=== PATIENT | male | born 1945 | race Caucasian/White ===

== ENCOUNTER → 2016-12-06 | Outpatient (CLI) | payer MEDICARE ==
--- NOTE | 2016-12-06 17:23 | DI ---
Indication: ITS.REASON: R06.02 SHORTNESS OF BREATH; Z87.891; R04.2 HYMOPTYSIS CHEST, PA LATERAL: Comparison: None Technique: PA and lateral view Findings: Patient showed heart size the upper range of normal with no central vascular congestion or mediastinal widening. Lungs are clear. Mild degenerative changes in the lower lumbar spine without acute fractures. Impression: No acute cardiopulmonary findings. .
== END ==
LOC: IMA 12-03 12:15
PROVIDERS: ATTEND Registered Nurse
DX: R06.02 Shortness of breath (principal); R04.2 Hemoptysis; Z87.891 Personal history of nicotine dependence; M47.896 Other spondylosis, lumbar region

== ENCOUNTER 2017-02-05 08:29 | Inpatient (IN) ==
[2017-02-05] MEDS ORDERED: CEFTRIAXONE 1 G in NS 100 ML IV ONE (08:42)
--- NOTE | 2017-02-05 09:01 | Emergency Department Report ---
SOB HPI - General Chief Complaint: Shortness of Breath/Dyspnea Stated Complaint: soa,coughing up blood Time Seen by Provider: 02/05/17 08:33 Source: patient Mode of arrival: ambulatory Limitations: no limitations - History of Present Illness 71yo man presented to the ER with 1mo of dyspnea. Pt has felt weak, dyspneic at rest, and unsteady on his feet. Has also been coughing small amounts of blood. Has called EMS to his house 3x previously for help after a fall. Has not seen his doctor for these sx. Has not taken anything for his sx. No sick contacts. MD Complaint: shortness of breath Onset (ago): week(s) Severity: severe Consistency/Duration: constant Relieving factors: nothing Exacerbating factors: exertion, movement, coughing Known history of: diabetes Associated symptoms: cough, sputum production, hemoptysis Treatment prior to arrival: none - Related Data Home Medications Medication Instructions Recorded Confirmed GlyBURIDE [Micronase] 5 mg PO DAILY 02/05/17 02/05/17 Metformin [Glucophage] 1,000 mg PO BIDWM 02/05/17 02/05/17 Tamsulosin [Flomax] 0.4 mg PO BID 02/05/17 02/05/17 Allergies Allergy/AdvReac Type Severity Reaction Status Date / Time No Known Allergies Allergy Verified 02/05/17 08:32 Review of Systems All systems: reviewed and negative except as stated Respiratory: Reports: cough, dyspnea, hemoptysis [facility] Patient Stated Medical History Hypertension Yes Diabetes Mellitus Type 2 Yes Shingles Yes Physical Exam - Limitations Limitations: no limitations - General General appearance: alert, in no apparent distress, cachectic - Normal Exams: Head:: Normocephalic without trauma Eyes:: Pupils are PERRLA w/ EOMI, No scleral icterus, irritation, or foreign bodies noted ENMT:: No facial trauma, nasal exudates, pharyngeal erythema, or exudates are noted Neck:: Full range of motion, without adenopathy, JVD, bruits or thyromegaly Lymphatic:: No lymphadenopathy, or lymphedema noted Musculoskeletal:: No tenderness, or deformity noted, good range of motion, all extremities Neurological:: Patient is alert, and oriented, cranial nerves, motor/sensory/ cerebellar, exams w/o gross deficits, to observation Psychiatric:: Patient exhibits, appropriate attention, emotion and affect - ENT ENT exam: Present: other (edentulous) - Chest Chest inspection: Present: normal inspection, symmetric chest wall rise. Absent : tenderness, rash - Respiratory Respiratory exam: Present: crackles (In lower lobes). Absent: normal lung sounds bilaterally, respiratory distress, wheezes, stridor, accessory muscle use - Cardiovascular Cardiovascular exam: Present: normal rhythm, tachycardia, +S1, +S2. Absent: systolic murmur, diastolic murmur, rubs, gallop, clicks, +S3, +S4 - Abdominal Exam Abdominal exam: Present: soft, normal bowel sounds. Absent: distention, tenderness, guarding, rebound, rigidity, psoas sign, obturator sign, heel tap sign, Cohen's sign, Rovsing's sign, hernia - Skin Skin exam: Present: warm, dry, intact, other (AKs and bruising) Course - Consultations Consultation #1: Dr. Ramsey: Will admit for further eval and treatment. Time: 11:11 Vital Signs Temperature 98.4 F 02/05/17 08:30 Pulse Rate 121 H 02/05/17 08:30 Respiratory Rate 32 H 02/05/17 08:30 Blood Pressure 131/80 02/05/17 08:30 Pulse Oximetry 96 02/05/17 08:30 Temperature 99.3 F 02/08/17 00:00 Pulse Rate 121 H 02/08/17 00:01 Respiratory Rate 42 H 02/08/17 03:25 Blood Pressure 86/44 02/08/17 00:00 Pulse Oximetry 94 02/08/17 03:25 Shortness of Breath/Dyspnea - Differential Diagnosis Likely: acute exacerbation of chronic obstructive airways disease, congestive heart failure, community acquired pneumonia, pulmonary embolism - Medical Records Attestation: I reviewed the patient's medical records. - Lab Data Result diagrams: 02/08/17 01:08 02/08/17 01:08 Lab Results 02/05/17 02/05/17 02/05/17 Range/Units 08:55 09:10 09:13 WBC (4.5-11.0) T/MM3 RBC (4.50-5.90) M/MM3 Hgb (13.5-17.5) GM/DL Hct (41-53) % MCV (80-100) UM3 MCH (26-34) UUG MCHC (31-37) GM/DL RDW Std Deviation (36.9-50.2) FL Plt Count (130-400) T/MM3 MPV (9.4-12.4) UM3 Immature Gran % (Auto) Neut % (Auto) Lymph % (Auto) Faulk % (Auto) Eos % (Auto) Baso % (Auto) Neut # Lymph # Faulk # Eos # Baso # Abs Immat Gran (auto) Neutrophils % (Manual) (33-66) % Band Neutrophils % (0-6) % Lymphocytes % (Manual) (23-45) % Monocytes % (Manual) (0-9.0) % Basophils % (Manual) (0-2) % Metamyelocytes % (0-0) % Neutrophils # (Manual) (1.8-7.7) T/MM3 Band Neutrophils # T/MM3 Lymphocytes # (Manual) (1-4.8) T/MM3 Monocytes # (Manual) (0-0.8) T/MM3 Basophils # (Manual) (0-0.2) T/MM3 Metamyelocytes # T/MM3 Polychromasia Anisocytosis RBC Morph Comment INR (0.99-1.21) D-Dimer (0-230) NG/ML ABG pH 7.490 H (7.350-7.450) ABG pCO2 32 L (34-45) MMHG ABG pO2 74 L (80-100) MMHG ABG HCO3 24 (22-26) MEQ/L ABG Total CO2 25.4 (23-27) MEQ/L ABG O2 Saturation 96.0 (95.0-98.0) % ABG Base Excess 1.6 (-2.0-2.0) MMOL/L O2 Delivery Method Room air Turbidity < 20 (0-20) Sodium 135 (134-144) MEQ/L Potassium 4.3 (3.6-5) MEQ/L Chloride 96 L (98-107) MEQ/L Carbon Dioxide 23 (22-30) MEQ/L Anion Gap 16 H (5-15) MEQ/L BUN 29.0 H (9-20) MG/DL Creatinine 0.9 (0.8-1.5) MG/DL GFR Calculation 83 BUN/Creatinine Ratio 32 H (6-26) RATIO Glucose 202 H (75-110) MG/DL Calculated Osmolality 272 (261-280) MOSM/KG Calcium 11.2 H (8.4-10.2) MG/DL Total Bilirubin 1.80 H (0.20-1.30) MG/DL Icterus Index < 2 (0-7) AST 33 (17-59) U/L ALT 52 (21-72) U/L Alkaline Phosphatase 107 (38-126) U/L Troponin I < 0.012 (0-0.12) ng/ml B-Natriuretic Peptide 1260 H (0-175) pg/mL Total Protein 6.7 (6.3-8.2) G/DL Albumin 3.9 (3.5-5.0) G/DL Globulin 2.8 (2.4-3.6) G/DL Albumin/Globulin Ratio 1.4 (1.1-2.2) RATIO Plasma Lactate 2.3 H (0.6-2.2) MMOL/L Procalcitonin NG/ML Specimen Hemolysis < 15 (0-25) Ur Collection Type Urine, clean catch Urine Color Mine (YELLOW) Urine Clarity Sl cloudy Urine pH 5.0 (5.0-8.0) Ur Specific [place] >=1.030 H (1.015-1.025) Urine Protein 1+ A (NEGATIVE) Urine Glucose (UA) Negative (NEGATIVE) Urine Ketones 1+ A (NEGATIVE) Urine Occult Blood Negative (NEGATIVE) Urine Nitrate Negative (NEGATIVE) Urine Bilirubin 2+ A (NEGATIVE) Urine Urobilinogen 2.0 (NORMAL) EU/DL Ur Leukocyte Esterase Negative (NEGATIVE) Urine RBC 0-1 (0-3) /HPF Urine WBC 3-5 (0-5) /HPF Ur Squamous Epith Cells 0-5 Urine Bacteria 3+ H (NEGATIVE) Granular Casts 3-5 Ur Culture Indicated? Cult not indicated 02/05/17 02/05/17 02/05/17 Range/Units 09:13 09:19 09:20 WBC 15.1 H (4.5-11.0) T/MM3 RBC 3.95 L (4.50-5.90) M/MM3 Hgb 11.2 L (13.5-17.5) GM/DL Hct 35.5 L (41-53) % MCV 89.9 (80-100) UM3 MCH 28.4 (26-34) UUG MCHC 31.5 (31-37) GM/DL RDW Std Deviation 42.5 (36.9-50.2) FL Plt Count 287 (130-400) T/MM3 MPV 10.1 (9.4-12.4) UM3 Immature Gran % (Auto) Not performed Neut % (Auto) Not performed Lymph % (Auto) Not performed Faulk % (Auto) Not performed Eos % (Auto) Not performed Baso % (Auto) Not performed Neut # Not performed Lymph # Not performed Faulk # Not performed Eos # Not performed Baso # Not performed Abs Immat Gran (auto) Not performed Neutrophils % (Manual) 77.0 H (33-66) % Band Neutrophils % 1.0 (0-6) % Lymphocytes % (Manual) 14.0 L (23-45) % Monocytes % (Manual) 6.0 (0-9.0) % Basophils % (Manual) 1.0 (0-2) % Metamyelocytes % 1.0 H (0-0) % Neutrophils # (Manual) 11.6 H (1.8-7.7) T/MM3 Band Neutrophils # 0.2 T/MM3 Lymphocytes # (Manual) 2.1 (1-4.8) T/MM3 Monocytes # (Manual) 0.9 H (0-0.8) T/MM3 Basophils # (Manual) 0.2 (0-0.2) T/MM3 Metamyelocytes # 0.2 T/MM3 Polychromasia 1+ Anisocytosis 1+ RBC Morph Comment Abnormal INR 1.29 H (0.99-1.21) D-Dimer 3194 H (0-230) NG/ML ABG pH (7.350-7.450) ABG pCO2 (34-45) MMHG ABG pO2 (80-100) MMHG ABG HCO3 (22-26) MEQ/L ABG Total CO2 (23-27) MEQ/L ABG O2 Saturation (95.0-98.0) % ABG Base Excess (-2.0-2.0) MMOL/L O2 Delivery Method Turbidity (0-20) Sodium (134-144) MEQ/L Potassium (3.6-5) MEQ/L Chloride (98-107) MEQ/L Carbon Dioxide (22-30) MEQ/L Anion Gap (5-15) MEQ/L BUN (9-20) MG/DL Creatinine (0.8-1.5) MG/DL GFR Calculation BUN/Creatinine Ratio (6-26) RATIO Glucose (75-110) MG/DL Calculated Osmolality (261-280) MOSM/KG Calcium (8.4-10.2) MG/DL Total Bilirubin (0.20-1.30) MG/DL Icterus Index (0-7) AST (17-59) U/L ALT (21-72) U/L Alkaline Phosphatase (38-126) U/L Troponin I (0-0.12) ng/ml B-Natriuretic Peptide (0-175) pg/mL Total Protein (6.3-8.2) G/DL Albumin (3.5-5.0) G/DL Globulin (2.4-3.6) G/DL Albumin/Globulin Ratio (1.1-2.2) RATIO Plasma Lactate (0.6-2.2) MMOL/L Procalcitonin 0.24 NG/ML Specimen Hemolysis (0-25) Ur Collection Type Urine Color (YELLOW) Urine Clarity Urine pH (5.0-8.0) Ur Specific [place] (1.015-1.025) Urine Protein (NEGATIVE) Urine Glucose (UA) (NEGATIVE) Urine Ketones (NEGATIVE) Urine Occult Blood (NEGATIVE) Urine Nitrate (NEGATIVE) Urine Bilirubin (NEGATIVE) Urine Urobilinogen (NORMAL) EU/DL Ur Leukocyte Esterase (NEGATIVE) Urine RBC (0-3) /HPF Urine WBC (0-5) /HPF Ur Squamous Epith Cells Urine Bacteria (NEGATIVE) Granular Casts Ur Culture Indicated? - Radiology Data Attestation: I reviewed the patient's radiology results. CXR: New right lower lobe consolidation and small pleural effusion. Findings could represent pneumonia or aspiration. Contrast enhanced chest CT may be helpful given the reported hemoptysis. - EKG Data EKG #1 EKG attestation: Yes: I reviewed and interpreted this EKG. EKG shows normal: sinus rhythm Rate: tachycardia Irving/QRS: left axis deviation Disposition Clinical Impression: Congestive heart failure Disposition: To [facility] Condition: Time of Disposition: 13:00 - Seen By: physician
--- NOTE | 2017-02-05 09:54 | XRay Report ---
INDICATION: Dyspnea for one month, hemoptysis PROCEDURE: CHEST 2-VIEWS UPRIGHT (PA & LAT) Encounter: Initial COMPARISON: December 06, 2016 FINDINGS: New airspace consolidation in the right lower lobe. Small to moderate right effusion. Left lung is clear. No pneumothorax. Heart size and mediastinal contours are stable. Pulmonary vascularity is normal. No significant skeletal abnormality. Impression: New right lower lobe consolidation and small pleural effusion. Findings could represent pneumonia or aspiration. Contrast enhanced chest CT may be helpful given the reported hemoptysis. .
[2017-02-05] MEDS ORDERED: ENOXAPARIN 80 MG/0.8 ML INJECTION SQ ONE (10:04)
[2017-02-05] MEDS ORDERED: SALINE FLUSH 10ml SYRINGE ONE (10:22)
[2017-02-05] MEDS ORDERED: IOHEXOL 350mg/ml 75ml INJECTION ONE (10:22)
[2017-02-05] MEDS ORDERED: NS 100 ML ONE (10:22)
--- NOTE | 2017-02-05 11:18 | CT Scan Report ---
Indication: Abn CXR and elev d-Dimer PROCEDURE: CT angio pulm emboli: Encounter: Initial Comparison: Chest x-ray from today Technique: Axial CT pulmonary angiographic phase images were performed through the chest after the administration of intravenous contrast. Coronal and Sagittal MIP reconstructed images were created and reviewed. Automated Exposure Control and Iterative Reconstruction dose reducing techniques were utilized. Contrast: Omnipaque 350 62 mL Findings: Pulmonary arteries: Exam is diagnostic to the subsegmental pulmonary arterial level. There is embolus seen within the bifurcation of the left main pulmonary artery extending into the proximal left lower lobe segmental branch. No other areas of emboli identified Other findings: There is a large mass in the right lower lobe measuring 8.1 x 8.2 cm in diameter on axial image #30. This displaces the pulmonary vessels and bronchi. Moderate right pleural effusion present. Mild atelectasis in the left lung with some small subpleural nodules. The costophrenic angle measuring up to 1.2 cm in size. Compressive atelectasis in the right. The central airways are patent. Mildly prominent left axillary lymph nodes which are not pathologically enlarged by CT size criteria heart is mildly enlarged. Small pericardial effusion. Subcarinal adenopathy measuring up to 2.8 cm in short axis dimension. Nodule in the cardiophrenic angle on axial image #52 measuring 1.4 cm in short axis dimension. There are additional nodules in the cardiophrenic angles more inferiorly. The upper abdomen shows multiple omental nodules and peritoneal implants. These measure up to 1.5 cm in diameter. Bilateral adrenal masses most likely representing metastases. This measures up to 5.2 cm on the left and 4.7 cm on the right. Prominent mesenteric mass just below the greater curvature of the stomach on axial image #87 measuring 2.7 cm in diameter. Bone windows show degenerative changes in the spine without obvious lytic or blastic lesions. Prominent mass along the left paraspinal region on axial image 115 measuring 4 cm in diameter. Impression: 1. Left lung pulmonary emboli. 2. Large right lower lobe mass suspicious for a primary lung malignancy with probable malignant pleural effusion. 3. Mediastinal adenopathy along with multiple omental and mesenteric nodules and bilateral adrenal masses consistent with widespread metastatic disease. Contrast enhanced CT of the abdomen and pelvis may be helpful for further evaluation. Case was discussed with Dr. Ashton in the emergency department at [facility] on February 05, 2017. .
--- NOTE | 2017-02-05 14:01 | History & Physical Report ---
<Kary Garcia V - Last Filed: 02/05/17 13:54> History of Present Illness Date: 02/05/17 Chief complaint: hemoptysis, weakness, dizziness HPI: Patient is a 71-year-old male who presents to the emergency room today for evaluation of ongoing weakness, dyspnea with hemoptysis. Patient reports that he has been weak for approximately 1 month. He has fallen at least 3 times in that timeframe and has laid on the floor overnight. He has noticed for the last 3-4 days. His weakness has worsened and he has had an increased shortness of breath. He presented to the ER today for acute evaluation. White count was found to be elevated at 15.1, hemoglobin 11.2, hematocrit 35.5, platelet count 287. Sodium is 135, potassium 4.3, BUN 29, creatinine 0.9, glucose 202. Troponin was undetectable. Pro BNP 1260. Venous lactate 2.3. Pro-calcitonin 0.24. ABG indicated a pH of 7.490, pCO2 32, pO2 74, bicarbonate 24. INR 1.29. D- dimer was found to be elevated at 3194. Given this elevation. A CT scan of the chest was performed that did reveal a left pulmonary emboli, accompanied with a large right lower lobe mass suspicious for lung malignancy. A urinalysis did reveal 1+ protein, 1+ ketones, 2+ bilirubin with 3+ bacteria. Patient's saturations have maintained adequate on room air. He has been tachycardic since admit into the emergency room. In the 120s. Blood pressure stable. Given these acute findings. Hospitalist services were contacted and accepted patient for further evaluation and treatment. Review of Systems All systems: reviewed and no additional remarkable complaints except as stated - Constitutional Constitutional: Present: fatigue, malaise, weakness - Cardiovascular Cardiovascular: Present: dyspnea on exertion - Respiratory Respiratory: Present: cough, dyspnea, hemoptysis, dyspnea on exertion - Integumentary/Breasts Integumentary Comments: "Sore on bottom." [facility] Patient Stated Medical History Hypertension Diabetes Mellitus Type 2 Clotting Problems hx of Shingles Depression Surgical History: Tonsillectomy. vastectomy. Vasectomy reversal Family History: Father-lung cancer Mother of old age - Social History Smoking status: Former smoker (quit 1 year ago) Substance use type: does not use Alcohol intake frequency: does not drink Current residence: Apartment/Private Home Social history: Primary care provider, Ladonna Claros APRN at [facility] Medications Home Medications Medication Instructions Recorded Confirmed Type GlyBURIDE [Micronase] 5 mg PO DAILY 02/05/17 02/05/17 History Metformin [Glucophage] 1,000 mg PO BIDWM 02/05/17 02/05/17 History Tamsulosin [Flomax] 0.4 mg PO BID 02/05/17 02/05/17 History Allergies Allergy/AdvReac Type Severity Reaction Status Date / Time No Known Allergies Allergy Verified 02/05/17 08:32 Exam Vital Signs: Temperature 98.1 F 02/05/17 12:48 Pulse Rate 119 H 02/05/17 12:48 Respiratory Rate 16 02/05/17 12:48 Blood Pressure 126/65 02/05/17 12:48 Pulse Oximetry 95 02/05/17 12:48 Oxygen Delivery Method Room Air Height: 1.7 m Weight: 81.3 kg - Constitutional Present: no acute distress - Routine HEENT Exam Head: Present: normocephalic, atraumatic Eye: Present: EOMI, PERRL ENT: Present: mucous membranes moist - Routine Respiratory Exam Present: CTA bilaterally (anteriorly with diminished bases) - Routine Cardiovascular Exam Present: RRR, S1, S2, tachycardia (rate 120) - Routine Abdominal Exam Present: soft, normoactive bowel sounds - Routine Rectal Exam Comments: On exam he does have an open wound to the coccyx with open skin - Routine Extremities Exam Present: full ROM Comments: Bilateral knees indicate abrasions of various. Large abrasion on left elbow - Routine Back/Spine/Pelvis Exam Back/Spine: Present: full ROM - Routine Skin Exam Present: intact, dry, warm - Routine Neurological Exam Present: alert, oriented X3, CN II-XII intact - Routine Psychiatric Exam Present: normal affect, normal thought process Results - Labs CBC & Chem 7: 02/05/17 09:19 02/05/17 09:13 Assessment and Plan (1) Pulmonary emboli Current visit: Yes Status: Acute (2) Pulmonary mass Current visit: Yes Status: Acute (3) Tachycardia Current visit: Yes Status: Acute (4) Multiple falls Current visit: Yes Status: Chronic (5) Hypertension Current visit: Yes Status: Chronic (6) Diabetes Current visit: Yes Status: Chronic (7) Generalized weakness Current visit: Yes Status: Chronic Assessment and Plan: Admit patient to inpatient status under the care of Dr. Ramsey for pulmonary emboli with newfound pulmonary mass In-depth discussion regarding test findings with patient At the bedside regarding acute findings. He does indicate his desire to be a do not resuscitate, however, would like to speak with oncology regarding pathology of his pulmonary mass, possible treatment options and ongoing recommendations. Will place consult with Dr. Haney and Raquel Howard APRN Our patient Cardiac telemetry given his tachycardia. Will monitor Accu-Cheks carefully and patient may have 1800 calorie carb consistent diet. Wound consult placed to wound care for evaluation of coccyx wound Patient was given Lovenox 80 milligrams subcutaneous 1 in the emergency room. We'll continue this twice a day. Will discuss further outpatient anticoagulation options. He was empirically covered with Rocephin 1 gram IV. He does meet sepsis criteria with leukocytosis and elevated venous lactate, however, this also may be secondary to acute findings of pulmonary mass as not acute evidence of infection has been found at this time. Will discuss further with attending Dr Ramsey. Hospital Course Summary Disclaimer: The visit summary below is not to be considered part of the above Progress Note. Hospital Course: 02/05/17- admission Admit patient to inpatient status under the care of Dr. Ramsey for pulmonary emboli with newfound pulmonary mass In-depth discussion regarding test findings with patient At the bedside regarding acute findings. He does indicate his desire to be a do not resuscitate, however, would like to speak with oncology regarding pathology of his pulmonary mass, possible treatment options and ongoing recommendations. Will place consult with Dr. Haney and Raquel Howard APRN Our patient Cardiac telemetry given his tachycardia. Will monitor Accu-Cheks carefully and patient may have 1800 calorie carb consistent diet. Wound consult placed to wound care for evaluation of coccyx wound Patient was given Lovenox 80 milligrams subcutaneous 1 in the emergency room. We'll continue this twice a day. Will discuss further outpatient anticoagulation options. He was empirically covered with Rocephin 1 gram IV. He does meet sepsis criteria with leukocytosis and elevated venous lactate, however, this also may be secondary to acute findings of pulmonary mass as not acute evidence of infection has been found at this time. Will discuss further with attending Dr Ramsey. <Bhavik Ramsey - Last Filed: 02/05/17 18:36> History of Present Illness Date: 02/05/17 [facility] Patient Stated Medical History Hypertension Yes Diabetes Mellitus Type 2 Yes Clotting Problems Yes: PE Shingles Yes Depression Yes: "LAST COUPLE OF MONTHS" Exam Vital Signs: Temperature 96.3 F L 02/05/17 16:56 Pulse Rate 125 H 02/05/17 18:11 Respiratory Rate 16 02/05/17 16:56 Blood Pressure 137/75 02/05/17 18:11 Pulse Oximetry 96 02/05/17 16:56 Oxygen Delivery Method Room Air Height: 1.7 m Weight: 81.3 kg Results - Labs CBC & Chem 7: 02/05/17 09:19 02/05/17 09:13 Assessment and Plan (1) Pulmonary emboli Current visit: Yes Status: Acute (2) Pulmonary mass Current visit: Yes Status: Acute (3) Tachycardia Current visit: Yes Status: Acute (4) Diabetes Current visit: Yes Status: Chronic (5) Hypertension Current visit: Yes Status: Chronic (6) Multiple falls Current visit: Yes Status: Chronic (7) Generalized weakness Current visit: Yes Status: Chronic DVT Prophylaxis: Lovenox Resuscitation Status: Do Not Resuscitate Assessment and Plan: Have independently interviewed and examined pt. Chart reviewed. Case discussed with ED physician and my Q[employer] T[employer]ER. Care plan developed with my supervision; agree with above. First noticed coughing up blood about 1 month ago. Progressively become more winded-very SOA with any activities. No pain with breathing, but breaths very shallow. No congestion to chest. No having chest pressure, but more full to chest. No increased LE edema. Not eating well past several day because progressively more weak, unsteady, and has had may falls. No f/c. No nausea, ab pain, or diarrhea. Lungs: decreased, shallow and labored breathing. CV: tachy, regular AB: soft nt/nd +BS EXT: no edema Plan: Inpatient admission. With pt PE and tachycardia and lung mass, couple with his extreme exertional dyspnea due feel more than 2 midnights of hospitalization care needed. Will need Onc evaluation-pt open to Bx. Lovenox/ Coumadin for DVT-would need to change to IV Heparin once we can determine when Bx to be done. IVF of NS at 75cc/hr for renal protection due to contrast - hold metformin. ECHO due to dyspnea. Low dose Toprol XL to help tachycardia. Monitor lab and sugars. Rocephin for pulmonary coverage - likely SIRS marker due to PE/ Pulm mass. Hospital Course Summary Disclaimer: The visit summary below is not to be considered part of the above Progress Note.
[2017-02-05] MEDS ORDERED: WARFARIN 5 MG TABLET PO ONE (16:10)
--- NOTE | 2017-02-05 16:26 | Pharmacy Consult ---
Pharmacy Consult-Warfarin - Consult Information COUMADIN CONSULT (Initial): Dx: Pulmonary Embolism Baseline INR = 1.29. Christian is a 71 yo male that came to the Hospital with chief complaints of hemoptysis, weakness and dizziness. Among other things, he was found to have a lung mass and Pulmonary embolism. The patient was started on Enoxaparin 80 mg sq twice a day (1 mg/kg q12h) and a Warfarin Protocol was started by Dr. Monica Ramsey. I ordered a dose of Warfarin 5 mg today. The Pharmacy will continue to monitor and make adjustments accordingly. Thank you for the Warfarin Protocol, Ben Chang, Pharmacist.
[2017-02-05] MEDS: NS 1,000 ML IV SCH (16:47)
--- NOTE | 2017-02-05 17:19 | Wound Care Progress Note ---
Wound Center Progress Note: Pt has moisture associated skin injury, pt is noted to be incontinent. Generalized redness at this time advanced skin protectant applied and pt encouraged to use urinal and to for assitance if wet. Instructed staff to reapply skin protectant on Friday, and to reposition frequently.
[2017-02-05] MEDS ORDERED: METFORMIN 1,000 MG TABLET PO SCH (17:30)
[2017-02-05] MEDS ORDERED: METOPROLOL 5mg/5ml INJECTION IVP PRN (17:50)
[2017-02-05] MEDS: TAMSULOSIN 0.4 MG CAPSULE PO SCH (22:00)
[2017-02-05] MEDS: ENOXAPARIN 80 MG/0.8 ML INJECTION SQ SCH (22:00)
[2017-02-06] MEDS ORDERED: HYDROCODONE/APAP 5mg/325mg TABLET PO PRN (05:11)
[2017-02-06] MEDS ORDERED: ACETAMINOPHEN 325 MG TABLET PO PRN (05:11)
[2017-02-06] MEDS: NS 1,000 ML IV SCH (06:20)
--- NOTE | 2017-02-06 07:58 | Pharmacy Consult ---
Pharmacy Consult-Warfarin - Laboratory Information 02/06/17 04:22 INR 1.35 H - Consult Information Will give warfarin 5mg po today. Thank you.
[2017-02-06] MEDS: ENOXAPARIN 80 MG/0.8 ML INJECTION SQ SCH ×2 (10:01→21:11)
[2017-02-06] MEDS: CEFTRIAXONE 1 G in NS 100 ML IV SCH (10:02)
[2017-02-06] MEDS: GLYBURIDE 5 MG TABLET PO SCH (10:04)
[2017-02-06] MEDS: TAMSULOSIN 0.4 MG CAPSULE PO SCH ×2 (10:04→21:11)
[2017-02-06] MEDS ORDERED: WARFARIN 5 MG TABLET PO SCH (12:00)
--- NOTE | 2017-02-06 14:06 | Consult Note ---
Oncology HPI - Data of Consult Patient: new to practice <Kayli Lazcano - 02/06/17 14:06> Consult date: 02/06/17 <Kayli Lazcano - 02/06/17 14:06> Requesting Physician: Bhavik Ramsey MD <Donny Haney - 02/06/17 17:27> Bhavik Ramsey MD <Kayli Lazcano - 02/06/17 14:06> Primary Care Provider: RAI Peraza APRN <Donny Haney - 02/06/17 17:27> RAI Peraza APRN <Kayli Lazcano - 02/06/17 14:06> Family Provider: Gretchen Weber APRN <Donny Haney - 02/06/17 17:27> Gretchen Weber APRN <Kayli Lazcano - 02/06/17 14:06> - Consult Narrative Reason for consult: lung mass <Kayli Lazcano - 02/06/17 15:07> History of present illness: 71-year-old male, new patient to Dr. Haney admitted yesterday with acute finding of pulmonary embolus, tachycardia, and lung mass. Denies fever, chills, night sweats. Reports decreased appetite for several weeks. Does not think he's had significant weight loss. States has had frequent cough, intermittent episodes of hemoptysis for several weeks. His understanding was he was to have a "test above and below-a colonsocopy. But I couldn't get a hold of the business office." Had increased weakness, several falls at home in the past 3 weeks. Weakness and shortness of air increased and patient presented to [facility] emergency room yesterday. CT angiogram showed evidence of the pulmonary embolus, large right lower lobe mass , mediastinal adenopathy along with multiple omental and mesenteric nodules. Also noted bilateral adrenal masses. Findings consistent with widespread metastatic disease. <Kayli Lazcano - 02/06/17 15:07> Review of Systems - Constitutional Constitutional: Present: fatigue, malaise, weakness. Absent: fever(s), night sweats <Kayli Lazcano 02/06/17 15:07> - EENT Eyes: Absent: loss of vision <Kayli Lazcano 02/06/17 15:07> Mouth/Throat: Absent: sore throat, sores <Kayli Lazcano 02/06/17 15:07> - Cardiovascular Cardiovascular: Present: dyspnea on exertion. Absent: chest pain, edema < Kayli Lazcano 02/06/17 15:07> - Respiratory Respiratory: Present: cough, dyspnea, hemoptysis <Kayli Lazcano 02/06/17 15 :07> - Gastrointestinal Gastrointestinal: Present: early satiety. Absent: abdominal pain, change in bowel habits <Kayli Lazcano 02/06/17 15:07> - Genitourinary Genitourinary: Absent: difficulty urinating <Kayli Lazcano 02/06/17 15:07> - Musculoskeletal Musculoskeletal: Present: muscle weakness <Kayli Lazcano 02/06/17 15:07> - Integumentary/Breasts Integumentary: Present: other (alterable abrasions. Large ecchymotic area posterior right axilla) <Kayli Lazcano 02/06/17 15:07> - Neurological Neurological: Present: frequent falls, weakness <Kayli Lazcano 02/06/17 15: 07> [facility] Patient Stated Medical History Hypertension Yes Diabetes Mellitus Type 2 Yes Clotting Problems Yes: PE Shingles Yes Depression Yes: "LAST COUPLE OF MONTHS" <Donny Haney 02/06/17 17:27> Patient Stated Medical History Hypertension Yes Diabetes Mellitus Type 2 Yes Clotting Problems Yes: PE Shingles Yes Depression Yes: "LAST COUPLE OF MONTHS" <Kayli Lazcano 02/06/17 15:07> Surgical History: Tonsillectomy. vastectomy. Vasectomy reversal <Kayli Lazcano 02/06/17 14:06> Family History: Father of [place], lung cancer. Half sister with breast cancer, . 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) <Kayli Lazcano - 02/06/17 15:07> Does patient use chewing tobacco?: No <Kayli Lazcano - 02/06/17 15:07> Current residence: Apartment/Private Home <Kayli Lazcano - 02/06/17 14:06> Medications Home Medications Medication Instructions Recorded Confirmed Type GlyBURIDE [Micronase] 5 mg PO DAILY 02/05/17 02/05/17 History Metformin [Glucophage] 1,000 mg PO BIDWM 02/05/17 02/05/17 History Tamsulosin [Flomax] 0.4 mg PO BID 02/05/17 02/05/17 History <Donny Haney - 02/06/17 17:27> Allergies Allergy/AdvReac Type Severity Reaction Status Date / Time No Known Allergies Allergy Verified 02/05/17 08:32 <Donny Haney - 02/06/17 17:27> Exam Vital signs: Temperature 96.3 F L 02/06/17 15:47 Pulse Rate 119 H 02/06/17 15:47 Respiratory Rate 20 02/06/17 15:47 Blood Pressure 118/69 02/06/17 15:47 Pulse Oximetry 97 02/06/17 15:47 Oxygen Delivery Method Nasal Cannula Oxygen Flow Rate 3 <Donny Haney - 02/06/17 17:27> Temperature 96.6 F L 02/06/17 08:02 Pulse Rate 118 H 02/06/17 08:02 Respiratory Rate 20 02/06/17 08:02 Blood Pressure 107/64 02/06/17 08:02 Pulse Oximetry 91 02/06/17 08:02 Oxygen Delivery Method Room Air Oxygen Flow Rate 3 <Kayli Lazcano - 02/06/17 14:06> - Constitutional mild distress, well developed, cooperative <Kayli Lazcano 02/06/17 15:07> - Routine HEENT Exam Head: Present: normocephalic <Kayli Lazcano - 02/06/17 15:07> Eye: Present: EOMI, PERRL, normal accommodation, conjunctivae pink <Kayli Lazcano - 02/06/17 15:07> ENT: Present: mucous membranes moist <Kayli Lazcano - 02/06/17 15:07> - Routine Neck Exam Present: supple. Absent: lymphadenopathy, swelling <Kayli Lazcano - 15:07> - Routine Respiratory Exam Present: dyspnea, decreased breath sounds (right greater than left.). Absent: wheezes, crackles <Kayli Lazcano - 02/06/17 15:07> - Routine Cardiovascular Exam Present: RRR, tachycardia <Kayli Lazcano - 02/06/17 15:07> - Routine Abdominal Exam Present: soft. Absent: tenderness, non distended <Kayli Lazcano - 02/06/17 15:07> - Routine Extremities Exam Present: full ROM. Absent: no edema <Kayli Lazcano - 02/06/17 15:07> - Routine Skin Exam Present: wounds (multiple areas of abrasion left elbow, bilateral knees, large ecchymosis right axilla). Absent: petechiae, rash <Kayli Lazcano - 02/06/17 15:07> - Routine Neurological Exam Present: alert, normal speech (slow at times in responses.) <Kayli Lazcano - 02/06/17 15:07> - Routine Psychiatric Exam Present: normal affect. Absent: anxious <Kayli Lazcano - 02/06/17 15:07> Oncology Results - Labs CBC & Chem 7: 02/06/17 04:22 02/06/17 04:22 <Donny Haney D - 02/06/17 17:27> Labs: Short CBC 02/06/17 Range/Units 04:22 WBC 13.8 H (4.5-11.0) T/MM3 Hgb 9.4 L D (13.5-17.5) GM/DL Hct 30.3 L D (41-53) % Plt Count 286 (130-400) T/MM3 BMP 02/06/17 04:22 Sodium 132 L Potassium 3.9 Chloride 98 Carbon Dioxide 24 BUN 27.0 H Creatinine 0.9 Glucose 210 H Calcium 10.5 H Laboratory Tests 02/05/17 02/06/17 02/06/17 09:13 04:22 04:22 WBC 13.8 H Hgb 9.4 L D Hct 30.3 L D Plt Count 286 INR Sodium 132 L BUN 27.0 H Glucose 210 H Calcium 11.2 H 10.5 H Total Bilirubin 1.80 H B-Natriuretic Peptide 1260 H 02/06/17 04:22 WBC Hgb Hct Plt Count INR 1.35 H Sodium BUN Glucose Calcium Total Bilirubin B-Natriuretic Peptide <Donny Haney - 02/06/17 17:27> Short CBC 02/06/17 Range/Units 04:22 WBC 13.8 H (4.5-11.0) T/MM3 Hgb 9.4 L D (13.5-17.5) GM/DL Hct 30.3 L D (41-53) % Plt Count 286 (130-400) T/MM3 BMP 02/06/17 04:22 Sodium 132 L Potassium 3.9 Chloride 98 Carbon Dioxide 24 BUN 27.0 H Creatinine 0.9 Glucose 210 H Calcium 10.5 H <Kayli Lazcano - 02/06/17 14:06> Assessment and Plan (1) Pulmonary emboli Current visit: Yes Status: Acute (2) Pulmonary mass Current visit: Yes Status: Acute Large right pulmonary mass, mediastinal adenopathy, omental nodes, bilateral adrenal mass. <Kayli Lazcano - 02/06/17 15:12> (1) Pulmonary emboli Current visit: Yes Status: Acute (2) Pulmonary mass Current visit: Yes Status: Acute <Donny Haney - 02/06/17 17:27> Assessment and Plan: Patient examined, chart reviewed, radiology images reviewed with Dr. Navarro and case discussed with Dr. Ramsey. #1 large lung mass that has dramatically increased from 2 months ago associated with pleural effusion and bilateral adrenal enlargement along with multiple areas of enlarged lymph nodes. This is most suggestive of malignancy and the need tissue to confirm diagnosis. There is potentially a palpable area in the left axillary region that could be biopsied by ultrasound guidance. We'll plan on completing staging with CT scan of the brain, CT scan of the abdomen and pelvis, and bone scan. Anticoagulation is needed for pulmonary embolism and may complicate ability to obtain tissue. 2. Hyper calcemic currently improved 3. Pulmonary emboli currently on anticoagulation with Lovenox starting Coumadin 4. Weakness 5. Bilateral adrenal enlargement most consistent with metastasis Plan. Need tissue evaluate left axillary area for potential biopsy. Reviewed images on scan there is a lymph node in the pectoralis groove that might be accessible. Obtain LDH, CEA CT brain, CT abdomen and pelvis, bone scan <Donny Haney - 02/06/17 17:27> Patient recently diagnosed with pulmonary embolus, on anticoagulation. Will check CEA, LDH. Consideration for pathology/biopsy and where best to obtain specimen. Dr. Haney will see patient/discuss plan of care later today. <Kayli Lazcano - 02/06/17 15:14> Sepsis Assessment - Evaluation Sepsis screening result: No Definite Risk <Kayli Lazcano - 02/06/17 14:06>
[2017-02-06] MEDS ORDERED: BISACODYL 10 MG SUPPOSITORY RECTALLY PRN (17:25)
[2017-02-06] MEDS ORDERED: POLYETHYL GLYCOL 3350 17gm PACKET PO PRN (17:25)
[2017-02-06] MEDS ORDERED: PROMETHAZINE/CODEINE ORAL LIQUID 5ml PO PRN (17:37)
--- NOTE | 2017-02-06 17:46 | Progress Note ---
Subjective: F/U: PE, Pulmonary mass, dyspnea Still very SOA-hard to do anything due to the dyspnea. Breathing shallow-hurts to take larger breath. Notes cough, congestion, and some sputum. No appetite. Slight nausea. No ab pain. No f/c. Very tired and weak in general. Objective Vital signs: Temperature 96.3 F L 02/06/17 15:47 Pulse Rate 119 H 02/06/17 15:47 Respiratory Rate 20 02/06/17 15:47 Blood Pressure 118/69 02/06/17 15:47 Pulse Oximetry 97 02/06/17 15:47 Oxygen Delivery Method Nasal Cannula Oxygen Flow Rate 3 Rhythm: Sinus Tachycardia Weight: 82.9 kg - Constitutional Present: moderate distress, well nourished, well developed, cooperative, other ( Appears tired and weak. ) - Routine HEENT Exam Head: Present: normocephalic, atraumatic Eye: Present: EOMI, PERRL ENT: Present: mucous membranes moist - Routine Respiratory Exam Present: dyspnea, decreased breath sounds (Shallow breathing. ), respiratory distress, distant breath sounds, diminished air movement - Routine Cardiovascular Exam Present: tachycardia - Routine Abdominal Exam Present: soft, normoactive bowel sounds, non distended, non tender - Routine Extremities Exam Present: no edema. Absent: cyanosis, clubbing - Routine Musculoskeletal Exam Musculoskeletal: Present: no clubbing or cyanosis, no joint swelling - Routine Skin Exam Present: intact, warm. Absent: mottling - Routine Neurological Exam Present: alert, CN II-XII intact, vision grossly intact, hearing grossly intact. Absent: motor deficit - Routine Psychiatric Exam Present: normal affect, normal thought process, cooperative, good insight, good judgment, anxious (Secondary to dyspnea ) Results - Labs CBC & Chem 7: 02/06/17 04:22 02/06/17 04:22 Assessment and Plan (1) Pulmonary emboli Current visit: Yes Status: Acute (2) Pulmonary mass Current visit: Yes Status: Acute (3) Tachycardia Current visit: Yes Status: Acute (4) Diabetes Current visit: Yes Status: Chronic (5) Hypertension Current visit: Yes Status: Chronic (6) Multiple falls Current visit: Yes Status: Chronic (7) Generalized weakness Current visit: Yes Status: Chronic DVT Prophylaxis: Lovenox Resuscitation Status: Do Not Resuscitate Assessment and Plan: Continue with anticoagulation due to PE. Will stop IVF to decrease risk for volume overload - creatinine stable. Sugars with elevation - Metformin on hold due to recent contrast. Will start 10 units Lantus at night and monitor sugars. Check A1c. Add Mucinex DM routinely for cough; Phenergan with codiene as needed. MS and lorazepam as needed to help anxiety, pain, and air hunger. Continue with supplemental O2. Discussed case with Dr Haney-Planning CT ab/pelvis and brain for staging. Looking into possible lymph node biopsy. Will continue with Rocephin for pulmonary coverage - likely SIRS marker due to PE/Pulm mass. Case discussed with Dr Haney and CM. Sepsis Assessment - Evaluation Sepsis screening result: No Definite Risk Hospital Course Summary Disclaimer: The visit summary below is not to be considered part of the above Progress Note. Hospital Course: 02/05/17- Admission Admit patient to inpatient status under the care of Dr. Ramsey for pulmonary emboli with newfound pulmonary mass In-depth discussion regarding test findings with patient At the bedside regarding acute findings. He does indicate his desire to be a do not resuscitate, however, would like to speak with oncology regarding pathology of his pulmonary mass, possible treatment options and ongoing recommendations. Will place consult with Dr. Haney and Raquel Howard APRN Our patient Cardiac telemetry given his tachycardia. Will monitor Accu-Cheks carefully and patient may have 1800 calorie carb consistent diet. Wound consult placed to wound care for evaluation of coccyx wound Patient was given Lovenox 80 milligrams subcutaneous 1 in the emergency room. We'll continue this twice a day. Will discuss further outpatient anticoagulation options. He was empirically covered with Rocephin 1 gram IV. He does meet sepsis criteria with leukocytosis and elevated venous lactate, however, this also may be secondary to acute findings of pulmonary mass as not acute evidence of infection has been found at this time. 02/06/17 Continue with anticoagulation due to PE. Will stop IVF to decrease risk for volume overload - creatinine stable. Sugars with elevation - Metformin on hold due to recent contrast. Will start 10 units Lantus at night and monitor sugars. Check A1c. Add Mucinex DM routinely for cough; Phenergan with codiene as needed. MS and lorazepam as needed to help anxiety, pain, and air hunger. Continue with supplemental O2. Discussed case with Dr Haney-Planning CT ab/pelvis and brain for staging. Looking into possible lymph node biopsy. Will continue with Rocephin for pulmonary coverage - likely SIRS marker due to PE/Pulm mass.
[2017-02-06] MEDS ORDERED: IOHEXOL 300mg/ml 100ml INJECTION ONE (17:53)
[2017-02-06] MEDS ORDERED: SALINE FLUSH 10ml SYRINGE ONE (17:54)
[2017-02-06] MEDS ORDERED: NS 100 ML ONE (17:54)
[2017-02-06] MEDS: GUAIFENESIN/D-METHORPHAN 600mg/30mg TABLET PO SCH (21:18)
[2017-02-06] MEDS: INSULIN GLARGINE 100unit/ml INJECTION SQ SCH (22:38)
--- NOTE | 2017-02-07 08:18 | Pharmacy Consult ---
Pharmacy Consult-Warfarin - Laboratory Information 02/06/17 02/07/17 04:22 04:36 INR 1.35 H 1.98 H COUMADIN CONSULT (Recurring): Today's INR = 1.98. The INR is still sub-therapeutic @ 1.98. I will order Warfarin 5 mg today. The Pharmacy will continue to monitor & make adjustments accordingly. Thank you for the Warfarin Dosing Protocol, Ben Chang, Pharmacist.
[2017-02-07] MEDS: CEFTRIAXONE 1 G in NS 100 ML IV SCH (08:58)
[2017-02-07] MEDS: ENOXAPARIN 80 MG/0.8 ML INJECTION SQ SCH (09:02)
[2017-02-07] MEDS: GUAIFENESIN/D-METHORPHAN 600mg/30mg TABLET PO SCH ×2 (09:03→20:55)
[2017-02-07] MEDS: TAMSULOSIN 0.4 MG CAPSULE PO SCH ×2 (09:04→20:55)
[2017-02-07] MEDS: GLYBURIDE 5 MG TABLET PO SCH (09:05)
--- NOTE | 2017-02-07 09:08 | CT Scan Report ---
Indication: adenopathy, lung mass PROCEDURE: CT abdomen pelvis w con: Encounter: Initial Comparison: CT angiogram of the chest dated February 05, 2017 Technique: Axial CT images were performed through the abdomen and pelvis after the administration of intravenous contrast. Coronal and sagittal two-dimensional reformats. Automated Exposure Control and Iterative Reconstruction dose reducing techniques were utilized. Contrast: Omnipaque 300 100 mL Findings: Necrotic appearing right lower lobe lung mass is better evaluated on the dedicated CTA of the chest. There is a moderate associated pleural effusion with compressive atelectasis in the right middle and right lower lobes. There is pleural-based mass in both sides of the chest, right greater than left. There is an area of enhancing right pleural mass on axial image #28 measuring 4.6 cm in diameter. Left-sided pleural-based mass at this same level measuring 2.6 cm in diameter. Nodule again seen anterior to the right ventricle of the heart in the cardiophrenic angle. Subcarinal adenopathy. Subcutaneous nodule is noted in the right proximal upper arm. Small to moderate pericardial effusion. Low-attenuation liver foci, some of which are too small to definitively characterize while a larger lesion on axial image #36 is suspicious for metastasis. This measures 2.6 cm in diameter. Smaller lesions are seen in the inferior right lobe of the liver. There are approximately six lesions total. No bile duct dilatation. The gallbladder is unremarkable. The spleen is grossly normal. The pancreas appears normal. Bilateral adrenal masses are again noted. The kidneys are grossly normal. Multiple mesenteric nodules and masses are seen. Left upper abdominal mesenteric mass on image #31 measures 3.3 cm in diameter. Inferior and slightly medial to this is an additional mass on image #35 measuring 3.5 cm in diameter. Scattered smaller nodules seen throughout the mesentery and retroperitoneum. There is a nodule posterior to the right kidney and one just superior and posterior to the left kidney. Subcutaneous nodules in the anterior pelvis. Subcutaneous nodule in the right gluteal area as well. These are all approximately 1 cm in size. Scattered arterial vascular calcifications. Bladder is normal. Prostate appears normal. There is lobulated mass in the left perirectal region on image #102 measuring 3.5 cm there is also some free fluid versus mass near the proximal sigmoid colon as well. Nodules in the sigmoid mesentery. No evidence of a bowel obstruction. The appendix is normal there is a soft tissue mass adjacent to the gluteus medius muscle on the left posterior to the greater trochanter on axial image #92 measuring 4 cm in diameter soft tissue mass in the right lower quadrant small bowel mesentery on coronal image #19 measuring 5 cm in diameter. There is also a mass associated with the left psoas muscle which is difficult to measure apart from the main muscle but appears to infiltrate over a long segment greater than 7 cm craniocaudally from its origin. Bone windows show a sclerotic focus in the right iliac bone. Multilevel degenerative change in the spine. There is a lytic destructive lesion in the posterior medial ninth rib on the left. Impression: Widespread metastatic disease involving the pleural space, lymph nodes, mesentery, liver, subcutaneous tissues, bones and musculature. Tissue sampling could likely be obtained from image guided biopsy of the liver, left gluteal area mass, pleural-based mass or potentially a mesenteric nodule. .
--- NOTE | 2017-02-07 09:13 | CT Scan Report ---
Indication: adenopathy PROCEDURE: CT head/brain wo/w con: Encounter: Initial Comparison: None Technique: Axial CT images through the head were performed without and with IV contrast. Iterative Reconstruction dose reducing technique was utilized. Contrast: Omnipaque 300 50mL FINDINGS: Mild generalized atrophy. The ventricles are proportional to atrophy. Scattered low-attenuation white matter changes compatible with chronic microvascular ischemia. Chronic appearing lacunar infarct in the left caudate region. The brainstem, cerebellum, and cerebral hemispheres have a normal morphology and CT attenuation. No hemorrhage, mass effect, mass lesions, or edema is evident. No areas of abnormal enhancement are seen. The visualized portions of the skull base, sinuses, and calvarium demonstrate no abnormality. Subcutaneous nodules in the left parietal area scalp. IMPRESSION: No evidence of intracranial metastatic disease. Subcutaneous nodules in the left parietal scalp could represent skin lesions, sebaceous cysts or potentially metastases. .
[2017-02-07] MEDS ORDERED: NS FLUSH BAG 500ml IV PRN (09:43)
[2017-02-07] MEDS: SALINE FLUSH 10ml SYRINGE IVF PRN ×4 (09:59→15:58)
--- NOTE | 2017-02-07 10:58 | Progress Note ---
Oncology Subjective Alone in room. Answers questions appropriately, but slow in response, is somnolent. Denies pain; then on questioning, states frontal h/a. Denies vision changes. Continues w/ non-prod. cough, SOA. Using accessory muscles w/ breathing. Poor oral intake. General: Gen. weakness, decreased appetite. Eyes: No redness, no pain, no diplopia ENT: No mouth sores, no trouble swallowing Cardiac: No chest pain no palpitations Pulmonary: + freq. non-prod. cough, SOA Abdomen: No pain, no nausea vomiting, no diarrhea or constipation : No urgency, frequency, dysuria, or hematuria Musculoskeletal: Gen. weakness. Neurological: + frontal h/a, no focal weakness Skin: abrasions, eccymosis right axilla. Psychiatric: more somnolent today <Kayli Lazcano - 02/07/17 12:14> Exam Vital signs: Temperature 96.9 F 02/07/17 08:00 Pulse Rate 111 H 02/07/17 08:00 Respiratory Rate 22 02/07/17 08:00 Blood Pressure 137/69 02/07/17 08:00 Pulse Oximetry 92 02/07/17 08:00 Oxygen Delivery Method Nasal Cannula Oxygen Flow Rate 2 <Donny Haney - 02/07/17 14:33> Temperature 96.9 F 02/07/17 08:00 Pulse Rate 111 H 02/07/17 08:00 Respiratory Rate 22 02/07/17 08:00 Blood Pressure 137/69 02/07/17 08:00 Pulse Oximetry 92 02/07/17 08:00 Oxygen Delivery Method Nasal Cannula Oxygen Flow Rate 2 <Kayli Lazcano - 02/07/17 10:58> - Constitutional mild distress, well nourished, well developed, somnolent <Kayli Lazcano 12:14> Comments: opens eyes on command/ answers questions, but slowin response <Kayli Lazcano 02/07/17 12:14> - Routine HEENT Exam Head: Present: normocephalic <Kayli Lazcano 02/07/17 12:14> Eye: Present: EOMI. Absent: conjunctivae pink (pale) <Kayli Lazcano - 12:14> ENT: Present: mucous membranes dry <Kayli Lazcano - 02/07/17 12:14> - Routine Neck Exam Present: supple. Absent: lymphadenopathy, tenderness <Kayli Lazcano - 12:14> - Routine Respiratory Exam Present: accessory muscle use, decreased breath sounds. Absent: wheezes, crackles <Kayli Lazcano - 02/07/17 12:14> - Routine Cardiovascular Exam Present: RRR, tachycardia <Kayli Lazcano - 02/07/17 12:14> - Routine Abdominal Exam Present: soft, non distended. Absent: tenderness <Kayli Lazcano - 02/07/17 12:14> - Routine Extremities Exam Absent: edema <Kayli Lazcano 02/07/17 12:14> - Routine Skin Exam Present: dry, pallor <Kayli Lazcano - 02/07/17 12:14> Comments: skin abrasions left elbow, alyse. ant. knees <Kayli Lazcano - 02/07/17 12:14> - Routine Neurological Exam Present: alert, moving all extremities <Kayli Lazcano - 02/07/17 12:14> somnolent, but responds appropriatley <Kayli Lazcano 02/07/17 12:14> - Routine Psychiatric Exam Present: normal affect, cooperative <Kayli Lazcano - 02/07/17 12:14> Oncology Results - Labs CBC & Chem 7: 02/07/17 04:36 02/07/17 04:36 <Donny Haney D - 02/07/17 14:33> Labs: Short CBC 02/07/17 Range/Units 04:36 WBC 15.6 H (4.5-11.0) T/MM3 Hgb 8.0 L D (13.5-17.5) GM/DL Hct 26.5 L D (41-53) % Plt Count 312 (130-400) T/MM3 BMP 02/07/17 04:36 Sodium 133 L Potassium 4.2 Chloride 98 Carbon Dioxide 25 BUN 25.0 H Creatinine 1.1 D Glucose 205 H Calcium 10.1 Liver Function 02/07/17 Range/Units 04:36 Total Bilirubin 1.00 (0.20-1.30) MG/DL AST 31 (17-59) U/L ALT 49 (21-72) U/L Alkaline Phosphatase 88 (38-126) U/L Albumin 3.2 L (3.5-5.0) G/DL <Donny Haney - 02/07/17 14:33> Short CBC 02/07/17 Range/Units 04:36 WBC 15.6 H (4.5-11.0) T/MM3 Hgb 8.0 L D (13.5-17.5) GM/DL Hct 26.5 L D (41-53) % Plt Count 312 (130-400) T/MM3 BMP 02/07/17 04:36 Sodium 133 L Potassium 4.2 Chloride 98 Carbon Dioxide 25 BUN 25.0 H Creatinine 1.1 D Glucose 205 H Calcium 10.1 Liver Function 02/07/17 Range/Units 04:36 Total Bilirubin 1.00 (0.20-1.30) MG/DL AST 31 (17-59) U/L ALT 49 (21-72) U/L Alkaline Phosphatase 88 (38-126) U/L Albumin 3.2 L (3.5-5.0) G/DL <Kayli Lazcano - 02/07/17 10:58> Assessment and Plan (1) Pulmonary emboli Status: Acute Current Visit: Yes (2) Pulmonary mass Status: Acute Current Visit: Yes <Donny Haney - 02/07/17 14:33> (1) Pulmonary mass Status: Acute Current Visit: Yes (2) Pulmonary emboli Status: Acute Current Visit: Yes <Kayli Lazcano - 02/07/17 12:15> Assessment and Plan: Patient examined, chart reviewed, I participated development of the plan of care of this patient. CT shows subcutaneous masses that might be accessible to biopsy. The INR today is 1.98 which prevents this from being able to do a biopsy calcium is improved to 10.1. Hemoglobin has dropped to 8 with a retake count of 9%. This is most suggestive of acute blood loss. Will check stool for blood. He is more somnolent today and I am concerned about his overall general performance status and how advanced this malignancy appears to be on scans. We' ll await tissue confirmation of malignancy and direction of therapy. <Donny Haney - 02/07/17 14:33> 1. large lung mass that has dramatically increased from 2 months ago associated with pleural effusion and bilateral adrenal enlargement along with multiple areas of enlarged lymph nodes. This is most suggestive of malignancy and the need tissue to confirm diagnosis. There is potentially a palpable area in the left axillary region that could be biopsied by ultrasound guidance. CT brain, abd/pelvis done; impression: Widespread metastatic disease involving the pleural space,lymph nodes, mesentery, liver, subcutaneous tissues, bones and musculature. Tissue sampling could likely be obtained from image guided biopsy of the liver, left gluteal area mass, pleural-based mass or potentially a mesenteric nodule. CT brain: IMPRESSION: No evidence of intracranial metastatic disease. Subcutaneous nodules in the left parietal scalp could represent skin lesions, sebaceous cysts or potentially metastases. 2. Hyper calcemic; improved-normal value 10.4 today. 3. Pulmonary emboli currently on anticoagulation with Lovenox starting Coumadin 4. Weakness 5. Bilateral adrenal enlargement most consistent with metastasis 6. anemia- Hgb8.0, HCT 26.5 Plan. Continue supportive care. Plan consult w/ Dr. Lord for biopsy. Anemia work- up pending. <Kayli Lazcano - 02/07/17 12:18> - Time Spent With Patient Total time spent is greater than 50% in coordination of care (as documented) at patient's floor/unit and/or counseling patient: <Donny Haney - 02/07/17 14:33> Total time spent is greater than 50% in coordination of care (as documented) at patient's floor/unit and/or counseling patient: <Kayli Lazcano - 02/07/17 10:58> 25 - 35 minutes <Kayli Lazcano 02/07/17 12:18> Sepsis Assessment - Evaluation Sepsis screening result: No Definite Risk <Kayli Lazcano - 02/07/17 10:58>
[2017-02-07] MEDS ORDERED: WARFARIN 5 MG TABLET PO SCH (12:00)
[2017-02-07 12:16] VITALS: BMI 28.5
--- NOTE | 2017-02-07 13:14 | Pharmacy Consult ---
Pharmacy Consult-Heparin - Laboratory Information Heparin Plt Count 312 T/MM3 (130-400) 02/07/17 04:36 We will begin heparin per pharmacy protocol at 1700 tonight (Lovenox 80mg given this a.m. at 0900). We will have a goal ptt of 55-83 for treatment of P.E. We will order subsequent PTT's per protocol.
[2017-02-07] MEDS: MORPHINE SULFATE 2 MG SYRINGE IVP PRN ×2 (14:45→22:36)
[2017-02-07] MEDS: PANTOPRAZOLE 40 MG INJECTION IVP SCH ×2 (15:58→20:55)
[2017-02-07] MEDS ORDERED: HEPARIN DRIP 20,000 UNIT/500 ML BAG IV SCH (17:00)
[2017-02-07] MEDS ORDERED: HEPARIN 1,000unit/ml INJECTION 10ml IVP ONE (17:00)
--- NOTE | 2017-02-07 17:19 | XRay Report ---
Indication: PE - hypoxia PROCEDURE: XR chest 1V: Encounter: Initial Comparison: CT angiogram of the chest dated February 05, 2017 Findings: Increased large right pleural effusion with opacification of the majority of the right hemithorax. Left lung shows some slight basilar atelectasis. No pneumothorax. Cardiac silhouette remains enlarged. Mediastinal contours are difficult to evaluate given the rotation an effusion present. Impression: Increase in the large right effusion. .
--- NOTE | 2017-02-07 17:41 | Progress Note ---
Subjective: F/U: PE, Pulmonary mass, dyspnea Somnolent this evening. Will answer questions briefly. Has had MS and lorazepam to help his pain/air hunger. Does feel they are helpful, not as uncomfortable today. Nursing reports decreased oral drive-will take sips of boost. Not able to be up and active. Objective Vital signs: Temperature 96.8 F 02/07/17 15:02 Pulse Rate 114 H 02/07/17 16:46 Respiratory Rate 36 H 02/07/17 16:46 Blood Pressure 125/88 02/07/17 15:02 Pulse Oximetry 94 02/07/17 16:46 Oxygen Delivery Method Nasal Cannula Oxygen Flow Rate 3 Height: 1.7 m Weight: 82.554 kg Body Mass Index: 28.5 - Constitutional Present: mild distress, well nourished, well developed, somnolent - Routine HEENT Exam Head: Present: normocephalic, atraumatic ENT: Present: mucous membranes moist - Routine Respiratory Exam Present: decreased breath sounds, respiratory distress (Mild ), rhonchi, distant breath sounds, diminished air movement - Routine Cardiovascular Exam Present: tachycardia - Routine Abdominal Exam Present: soft, normoactive bowel sounds, non distended, non tender - Routine Extremities Exam Present: no edema, pulses intact (Normal radial pulses bilaterally). Absent: cyanosis, clubbing - Routine Musculoskeletal Exam Musculoskeletal: Present: no clubbing or cyanosis - Routine Skin Exam Present: intact, pallor, warm - Routine Neurological Exam Present: altered mental status (Somnolent ), hearing grossly intact - Routine Psychiatric Exam Present: unable to assess (Somnolent ) Results - Labs CBC & Chem 7: 02/07/17 04:36 02/07/17 04:36 Assessment and Plan (1) Pulmonary emboli Current visit: Yes Status: Acute (2) Pulmonary mass Problem details: Suspect cancer. Current visit: Yes Status: Acute (3) Tachycardia Current visit: Yes Status: Acute (4) Diabetes Current visit: Yes Status: Chronic (5) Hypertension Current visit: Yes Status: Chronic (6) Multiple falls Current visit: Yes Status: Chronic (7) Generalized weakness Current visit: Yes Status: Chronic DVT Prophylaxis: Heparin drip Resuscitation Status: Do Not Resuscitate Assessment and Plan: CT ab/pelvis showing extensive metastatic tumor burden. Dr Newton consulted to potential biopsy. Coumadin stopped and Lovenox changed to Heparin drip due to potential for Bx. Hemoglobin decreasing - ? secondary to IVF vs blood loss. Pt typed and screened. Potentially need to transfuse if HGB decrease more or respiratory status declines. Repeat CXR showing increased effusion. Metformin on hold due to IV contrast - Lantus 10 units at night started. With decreased oral drive, will hold on sliding scale to help decrease risk for hypoglycemia. Continue with pain control-MS and lorazepam as needed. Continue with supplemental O2. Monitor lab-will Recheck CBC, CMP, and INR in am. Overall prognosis worrisome. Case discussed with Dr Haney, Dr Dr Newton, and CM. Sepsis Assessment - Evaluation Sepsis screening result: No Definite Risk Hospital Course Summary Disclaimer: The visit summary below is not to be considered part of the above Progress Note. Hospital Course: 02/05/17- Admission Admit patient to inpatient status under the care of Dr. Ramsey for pulmonary emboli with newfound pulmonary mass In-depth discussion regarding test findings with patient At the bedside regarding acute findings. He does indicate his desire to be a do not resuscitate, however, would like to speak with oncology regarding pathology of his pulmonary mass, possible treatment options and ongoing recommendations. Will place consult with Dr. Haney and Raquel Howard APRN Our patient Cardiac telemetry given his tachycardia. Will monitor Accu-Cheks carefully and patient may have 1800 calorie carb consistent diet. Wound consult placed to wound care for evaluation of coccyx wound Patient was given Lovenox 80 milligrams subcutaneous 1 in the emergency room. We'll continue this twice a day. Will discuss further outpatient anticoagulation options. He was empirically covered with Rocephin 1 gram IV. He does meet sepsis criteria with leukocytosis and elevated venous lactate, however, this also may be secondary to acute findings of pulmonary mass as not acute evidence of infection has been found at this time. 02/06/17 Continue with anticoagulation due to PE. Will stop IVF to decrease risk for volume overload - creatinine stable. Sugars with elevation - Metformin on hold due to recent contrast. Will start 10 units Lantus at night and monitor sugars. Check A1c. Add Mucinex DM routinely for cough; Phenergan with codiene as needed. MS and lorazepam as needed to help anxiety, pain, and air hunger. Continue with supplemental O2. Discussed case with Dr Haney-Planning CT ab/pelvis and brain for staging. Looking into possible lymph node biopsy. Will continue with Rocephin for pulmonary coverage - likely SIRS marker due to PE/Pulm mass. 02/07/17 Somnolent this evening. Will answer questions briefly. Has had MS and lorazepam to help his pain/air hunger. Does feel they are helpful, not as uncomfortable today. Nursing reports decreased oral drive-will take sips of boost. Not able to be up and active. CT ab/pelvis showing extensive metastatic tumor burden. Dr Newton consulted to potential biopsy. Coumadin stopped and Lovenox changed to Heparin drip due to potential for Bx. Hemoglobin decreasing - ? secondary to IVF vs blood loss. Pt typed and screened. Potentially need to transfuse if HGB decrease more or respiratory status declines. Repeat CXR showing increased effusion. Metformin on hold due to IV contrast - Lantus 10 units at night started. With decreased oral drive, will hold on sliding scale to help decrease risk for hypoglycemia. Continue with pain control-MS and lorazepam as needed. Continue with supplemental O2. Monitor lab-will Recheck CBC, CMP, and INR in am. Overall prognosis worrisome - extensive tumor burden, presenting with PE.
[2017-02-07] MEDS: INSULIN GLARGINE 100unit/ml INJECTION SQ SCH (22:15)
[2017-02-07] MEDS ORDERED: INSULIN ASPART 100unit/ml INJECTION SQ PRN (22:47)
[2017-02-08] MEDS ORDERED: MORPHINE SULFATE 4 MG SYRINGE IVP PRN (00:51)
[2017-02-08] MEDS ORDERED: MORPHINE SULFATE 2 MG/ML AEROSOL PRN (00:52)
[2017-02-08 00:56] VITALS: BP 86/44; TEMP 99.3
[2017-02-08 04:08] VITALS: RESP 42; O2SAT 94
[2017-02-08 05:46] VITALS: PULSE 121
--- NOTE | 2017-02-10 18:26 | Echocardiogram ---
DATE OF STUDY 02/07/2017 INDICATIONS Dyspnea, lung mass. TECHNICAL QUALITY Technically good 2D, M-mode, Doppler echocardiographic images were submitted for interpretation. FINDINGS 1. CARDIAC CHAMBERS: All cardiac chamber measurements are normal. Aortic root diameter is normal. RV size and contractility appear preserved. The patient is dysrhythmic throughout the study. 2. LEFT VENTRICLE: Wall thickness appears visually upper-normal range. Measurements by life support technician appear to be inaccurate. Wall motion analysis appears normal. Systolic function appears preserved. Ejection fraction visually estimated at 55%-60%. Diastolic function analysis shows inverted E/A ratio of 0.7, E/e' ratio is 11. 3. VALVES: Aortic valve exhibits mild sclerosis. Valve excursion is normal. Mitral valve and tricuspid valve structure and motion appear normal. Normal valve excursion. 4. DOPPLER: Normal flow velocities. No significant valvular dysfunction. Doppler quality is suboptimal. 5. Central venous pressure is normal based on IVC appearance. ] 6. Intermittent tachycardia is present. 7. No intracardiac masses, thrombi, vegetations or shunts. Very minimal pericardial effusion is seen. IMPRESSION 1. Normal LV size and systolic function. 2. Intermittent tachycardia and dysrhythmia is present. 3. Mild sclerotic valvular disease is present. 4. No significant valvular dysfunction. 5. Very small pericardial effusion of no hemodynamic significance. 6. Technically suboptimal Doppler. 7. Trace aortic regurgitation. 8. Normal central venous pressure. 9. Mild pulmonary hypertension. Borderline elevated systolic PA pressure. Systolic PA pressure estimated at 36 mmHg. MTDD
--- NOTE | 2017-02-11 12:59 | Death Summary ---
ADMISSION DIAGNOSES Pulmonary embolism. Lung mass. 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 ASSOCIATED CONDITIONS AND COMPLICATIONS Acute pulmonary embolism - suspect secondary to cancerous process. Type 2 diabetes mellitus. Hypertension. Generalized weakness. Multiple falls. Hypercalcemia (present on admission) - improved. Hyponatremia (not present on admission). Anemia - suspect secondary to cancerous process. SIRS - secondary to cancer; no evidence of infection. CONSULTS Dr. Haney - Oncology Dr. Tyson - Surgery PROCEDURES CT PE chest CT scan chest, abdomen and pelvis CT scan brain Echocardiogram CLINICAL RESUME Mr. Arteaga is a 71-year-old gentleman who presents to emergency room secondary to ongoing weakness, dyspnea and hemoptysis. The patient reports that he has been feeling weak for approximately one month. During this time he has had at least three falls. At one point in time he lay on the floor overnight. Over the last 3-4 days his weaknesses has worsened. He is also becoming increasingly short of air. About one month ago he noticed hemoptysis; it sounds as if he was in the process of getting this looked at, but really nothing had been done. He presented to the emergency room secondary to symptoms. There he was evaluated. White count is elevated at 15.1 with hemoglobin 11.2. Calcium is elevated at 11.2. Venous lactate is 2.3. ProBNP is 1260. D-dimer is elevated at 3194. Secondary to his dyspnea, chest x-ray as well as CT scan of chest were obtained. This did reveal left pulmonary emboli as well as a large right lower mass suspicious for lung malignancy. In light of his symptoms, hospitalist service was notified and patient was subsequently placed in inpatient admission status at [facility] under the care of Dr. Ramsey. Anticipated length of stay was thought be greater than three midnights. For complete details of the H&P refer to that document. LABORATORY White blood count is 15.1 with 77% neutrophils and 1% bands Hemoglobin is 11.2 with hematocrit 35.5, MCV 89.9 and platelets 287,000. Serum sodium is 135, potassium 4.3, chloride 96, CO2 23, BUN 29 with creatinine 0.9, GFR 83 and blood glucose 202. Hemoglobin A1c is 6.7%. Calcium is elevated at 11.2. Liver enzymes are unremarkable. Troponin I is less than 0.012. ProBNP is 1260. Venous lactate is 2.3. CEA is normal at 2.31. Procalcitonin 0.24. TSH is 1.82. D-dimer is 1394. UA reveals elevated specific gravity greater than or equal to 1.030 with 1+ protein, 1+ ketone, 2+ bilirubin and 3+ bacteria. HOSPITAL COURSE The patient was placed in inpatient admission status at [facility] under the care of Dr. Ramsey. In light of his acute pulmonary embolism he was started on Lovenox 1 mg/kg subcu b.i.d. for anticoagulation. Coumadin was initiated as per pharmacy protocol. Supplemental oxygen was started. Consultation with Dr. Haney (oncology) was obtained. Cardiac telemetry was monitored secondary to tachycardia. Accu-Cheks were monitored secondary to his diabetes. We did hold his metformin secondary to CT scans. In light of his leukocytosis we did initiate Rocephin 1 g IV. He did potentially meet SIRS criteria. Truly there was no infectious etiology found and likely the SIRS was secondary to underlying cancer. We did initiate IV fluid for hydration as well as to help provide renal protection in light of IV contrast. Lantus was started at 10 units subcutaneous nightly to help with glycemic control. By hospital day #1 he was having more pain and discomfort with breathing and increasing cough. Tylenol was not helping control his symptoms. We did add morphine and lorazepam to help with anxiety, pain and air hunger. Additionally , Mucinex DM was added routinely for cough with Phenergan with codeine available as needed. CT scan of abdomen and pelvis as well as CT scan of brain was obtained for staging. The CT scan of brain showed no acute intracranial mass or tumor; however, CT scan of abdomen and pelvis showed evidence of diffusely widespread metastatic disease. Dr. Tyson was consulted for potential biopsy. We did stop Coumadin and switch Lovenox to a heparin drip in anticipation of potential biopsy. During the hospitalization we did see his hemoglobin trend down, so he was typed and screened. Unfortunately, he really made no clinical gains during the hospitalization. The patient did early in the morning of 02/08/2017. His cause of was secondary to his underlying cancer of uncertain type - we do suspect it was lung cancer. At time of diagnosis of this cancer his cancerous process was widely metastatic and prognosis therefore was quite low. Additionally, his presenting symptom for his cancer was a pulmonary embolism which is indeed a worrisome finding. Code resuscitative efforts were not initiated; he was made Do Not Resuscitate at time of presentation - he was quite clear on his wishes for no resuscitation. Smoking likely did play a role into his ; the patient had quit smoking approximately one year prior to admission. He on 2016 at 0417 hours. Body was released to a mortuary. [facility]
== END 2017-02-08 06:00 | disposition expired | DRG 180 ==
LOC: ED 08:29 → MED 12:12
PROVIDERS: ADMIT Hospitalist; ATTEND Hospitalist